=== PATIENT | male | born 1965 | race Caucasian/White ===

== ENCOUNTER 2016-08-06 20:11 | Emergency (ER) | payer OTHER ==
[2016-08-06 20:53] LABS: ALBUMIN 4.6 gm/dL (3.4-5.0); ALKALINE PHOSPHATASE 93 U/L (50-136); ALT/SGPT 15 U/L (7.53-40.17); AMYLASE 35 U/L (15.62-74.58); AST/SGOT 15 U/L (6.66-35.34); BLOOD UREA NITROGEN 12 mg/dL (7-18); CALCIUM 8.9 mg/dL (8.7-10.7); CARBON DIOXIDE 21 mmol/L (21-32); CREATININE 0.8 mg/dL (0.6-1.3); GLUCOSE,RANDOM 132 mg/dL (70-99); LIPASE 15 U/L (6.75-60.75); POTASSIUM 3.9 mmol/L (3.5-5.1); SODIUM 138 mmol/L (136-145)
[2016-08-06 20:55] LABS: BASO % 0.2 % (0.2-1.2); EOS % 0.2 % (0.8-7.0); GRAN # 11.6 10_X3_uL (1.8-5.4); GRAN % 92.1 % (34.0-67.9); HEMATOCRIT 42.9 % (40-51); HEMOGLOBIN 14.9 g/dL (13.7-17.5); LYMPH # 0.4 10_X3_uL (1.3-3.6); LYMPH % 3.2 % (21.8-53.1); MEAN CORPUSCULAR HEMOGLOBIN 31.2 pg (27.0-33.0); MEAN CORPUSCULAR HGB CONC 34.7 g/dL (32.0-36.0); MEAN CORPUSCULAR VOLUME 89.7 fL (79-92); MEAN PLATELET VOLUME 9.7 fl (7.5-11.5); MONO # 0.5 10_X3_uL (0.3-0.8); MONO % 4.3 % (5.3-12.2); PLATELET COUNT 167 x10_3/uL (163-337); RED BLOOD COUNT 4.78 x10_6/uL (4.6-6.1); RED CELL DISTRIBUTION WIDTH 13.8 % (11.6-14.4); WHITE BLOOD COUNT 12.6 x10_3/uL (4.2-9.1)
== END 2016-08-06 22:06 | disposition home or self-care (01) ==
LOC: ER 20:11
PROVIDERS: Internal Medicine
DX: R11.2 Nausea with vomiting, unspecified (principal); R19.7 Diarrhea, unspecified; I10 Essential (primary) hypertension; F41.9 Anxiety disorder, unspecified; E78.00 Pure hypercholesterolemia, unspecified; Z79.899 Other long term (current) drug therapy
CPT/HCPCS: 36415; 80053; 82150; 83690; 85025; 87070; 87880; 96361; 96374; 99070; 99283-25